=== PATIENT | female | born 1950 | race Caucasian/White ===

== ENCOUNTER 2020-04-03 18:33 | Emergency (ER) | payer MEDICARE ==
[2020-04-03 19:01] LABS: HEMATOCRIT 37.2 % (37.0-47.0); HEMOGLOBIN 11.2 g/dL (12.5-16.0); MEAN CELL VOLUME 79 fl (78-100); MEAN CORPUSCULAR HGB CONC 30 g/dL (33-37); MEAN PLATELET VOLUME 11.6 fl (7.4-10.4); PLATELET COUNT 273 K/mm3 (130-400); RED BLOOD COUNT 4.73 M/mm3 (4.10-5.30); RED CELL DISTRIBUTION WIDTH 15.8 % (11.5-14.5); WHITE BLOOD COUNT 7.6 K/mm3 (4.8-10.8)
[2020-04-03 19:02] LABS: MEAN CORPUSCULAR HEMOGLOBIN 24 pg (27-31)
[2020-04-03 19:08] LABS: LYMPHOCYTE 68 % (20-51); MONOCYTE 7 % (3-10); NEUTROPHILS 15 % (42-75)
[2020-04-03 19:10] LABS: ALBUMIN 3.6 g/dL (3.4-4.8); POTASSIUM 4.1 mmol/L (3.5-5.1)
[2020-04-03 19:11] LABS: CALCIUM 8.7 mg/dL (8.3-10.5)
[2020-04-03 19:13] LABS: TOTAL PROTEIN 5.9 g/dL (6.2-8.1)
[2020-04-03 19:14] LABS: TOTAL BILIRUBIN 0.2 mg/dL (0.2-1.2)
[2020-04-03 19:25] LABS: TROPONIN-I 0.09 ng/mL (<0.030)
[2020-04-03 20:09] LABS: D-DIMER 29.56 mg/L FEU (0.15-0.50)
[2020-04-03 20:26] VITALS: BP 00/00
== END 2020-04-03 20:26 | disposition expired ==
LOC: EDBD 18:33 → ED 18:33
PROVIDERS: Physician Assistant
DX: I46.9 Cardiac arrest, cause unspecified (principal)
CPT/HCPCS: J0171; J0282; J3475